=== PATIENT | female | born 1980 | race African-American/Black ===

== ENCOUNTER 2018-08-20 06:25 | Emergency (ER) | payer OTHER ==
[~2018-08-20] VITALS: Ht 170.2 cm; Wt 111.1 kg
[2018-08-20] MEDS ORDERED: TESSALON PERLE100 MG PO (07:04)
[2018-08-20] MEDS ORDERED: MUCINEX DM ER1 EAC1 PO (07:05)
[2018-08-20] MEDS ORDERED: TYLENOL325 MG PO (07:17)
[2018-08-20 07:21] VITALS: BP 124/72
== END 2018-08-20 07:17 | disposition home or self-care (01) ==
LOC: ER 06:25
DX: J06.9 Acute upper respiratory infection, unspecified (principal)